=== PATIENT | male | born 1980 | race African-American/Black ===

== ENCOUNTER 2018-04-19 20:00 | Emergency (ER) | payer SELFPAY ==
[~2018-04-19] VITALS: Ht 167.6 cm; Wt 71.7 kg
[2018-04-19 21:16] LABS: HEMATOCRIT 47.5 % (38.0-50.0); HEMOGLOBIN 17.1 G/DL (12.5-16.6); MCH 31.3 PG (29.0-34.0); PLATELET COUNT 298 K/uL (156-360); RBC DIS.WIDTH-CV 12.3 % (11.8-14.6); RBC DIS.WIDTH-SD 39.1 % (39-53); RED BLOOD COUNT 5.46 M/uL (4.00-5.50); WHITE BLOOD COUNT 16.2 K/uL (4.1-10.2)
[2018-04-19 21:44] LABS: CHLORIDE 105 mEq/L (99-109); SODIUM 142 mEq/L (136-147)
[2018-04-19 21:47] LABS: GLUCOSE 122 mg/dL (70-99); TOTAL PROTEIN 6.4 g/dL (6.4-8.3)
[2018-04-19 21:49] LABS: TOTAL BILIRUBIN 0.4 mg/dL (0.0-1.0)
[2018-04-19 21:50] LABS: ALKALINE PHOSPHATASE 55 IU/L (3-129); CREATININE 1.5 mg/dL (0.6-1.3); GFR ESTIMATE (CALCULATED) > 59 mL/min/ (58.99-99999)
[2018-04-19 21:52] LABS: AST (GOT) 22 IU/L (2-34); UREA NITROGEN (BUN) 15 mg/dL (9-23)
[2018-04-19 21:53] LABS: ALT (GPT) 14 IU/L (3-49)
[2018-04-19 21:54] LABS: CREATINE KINASE 360 IU/L (1-294); LIPASE 9 U/L (1.0-51.0)
[2018-04-19 22:36] LABS: APPEARANCE CLEAR ((CLEAR)); BILIRUBIN NEGATIVE; BLOOD NEGATIVE; COLOR AMBER ((YELLOW)); GLUCOSE (STRIP) NEGATIVE; KETONES NEGATIVE; LEUKOCYTES NEGATIVE; NITRITE NEGATIVE; PROTEIN (STRIP) 30; SPECIFIC GRAVITY 1.026 (1.000-1.030); UCUL ADDED? NO
[2018-04-20 00:03] VITALS: BP 106/58
== END 2018-04-20 00:05 | disposition home or self-care (01) ==
LOC: EME 20:00
DX: T67.5XXA Heat exhaustion, unspecified, initial encounter (principal); E86.0 Dehydration; R11.0 Nausea; F17.200 Nicotine dependence, unspecified, uncomplicated
CPT/HCPCS: 80053; 81003; 82550; 83690; 85027; 99281; 99284; J2405; J7030